=== PATIENT | female | born 1955 | race Caucasian/White ===

== ENCOUNTER 2016-04-03 19:42 | Emergency (ER) | payer OTHER, BC ==
[2016-04-03] MEDS ORDERED: Ondansetron INJ* 2 MG/ML VIAL IV ONE ×2 (20:36→22:06)
[2016-04-03] MEDS: NS 0.9% 1000 ML* 2,000 ML IV ONE ×2 (20:54→23:00)
[2016-04-03 21:03] LABS: Comments Flag Yes; Hematocrit 35 % (35-47); Hemoglobin 11.9 g/dl (12.0-16.0); Mean Corpuscular HGB Conc 34 g/dl (31-36); Mean Corpuscular Hemoglobin 34 pg (27-31); Mean Corpuscular Volume 99 fL (80-97); Mean Platelet Volume 8 um3 (7.4-10.4); Red Blood Count 3.55 10^6/ul (4.0-5.4); Red Cell Distribution Width 14 % (10.5-15)
[2016-04-03 21:04] LABS: White Blood Count 1.4 10^3/ul (3.5-10.8)
[2016-04-03 21:19] LABS: Albumin 3.7 g/dL (3.2-5.2); BUN/Creatinine Ratio 20.5 (8-20); C Reactive Protein 9.95 mg/L (< 5.00); Calcium 8.6 mg/dL (8.6-10.3); EGFR African American 96.6 (>60); EGFR Non-African American 75.1 (>60); Globulin 2.6 g/dL (2-4); Potassium 3.3 mmol/L (3.5-5.0); Total Bilirubin 0.4 mg/dL (0.2-1.0); Total Protein 6.3 g/dL (6.4-8.9)
--- NOTE | 2016-04-03 21:21 | RAD ---
HISTORY: Fever COMPARISONS: April 09, 2014 VIEWS:1: Single frontal portable view of the chest at 9:17 PM FINDINGS: LINES AND TUBES: None. CARDIOMEDIASTINAL SILHOUETTE: The cardiomediastinal silhouette is normal for portable technique. PLEURA: The costophrenic angles are sharp. No pleural abnormalities are noted. LUNG PARENCHYMA: The lungs are clear. ABDOMEN: The upper abdomen is clear. There is no subphrenic gas. BONES AND SOFT TISSUES: There is a scoliotic curvature of the spine. Surgical clips are noted in the left axilla. IMPRESSION: NO ACTIVE CARDIOPULMONARY DISEASE.
[2016-04-03] MEDS ORDERED: Potassium Chlor TAB* 20 MEQ TAB.ER PO ONE (21:35)
[2016-04-03] MEDS ORDERED: Ondansetron ODT TAB* 4 MG PO ONE (22:07)
--- NOTE | 2016-04-03 22:55 | ED ---
I, Rigoberto,Harry, scribed for Romario Kidd MD on 04/03/16 at 2042 . Complex/Multi-Sys Presentation - HPI Summary HPI Summary: This 60 y/o female presents to ED for acute, intermittent fever. Pt reports temperature of ~ 100.3 F at home [employer]. Pt decided to visit ED when she was strongly urged by her oncologist to come to ED for blood work. Pt also reports recent "stomach bug" and watery, malodorous diarrhea. Pt is noted afebrile at the time of triage, but was noted with blood pressure of 86/64 at the time of initial evaluation, which pt confirms lower than her baseline. 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 FHx is positive for "various types" of CA. - History Of Current Complaint Chief Complaint: ED Time Seen by Provider: 04/03/16 20:29 Hx Obtained From: Patient, Medical Records Onset/Duration: Sudden Onset, Still Present Timing: Intermittent, Lasting: - fever Severity Currently: Mild Severity Initially: Mild Associated Signs And Symptoms: Positive: Diarrhea - watery, malodorous, Fever - Allergies/Home Medications Allergies/Adverse Reactions: Allergies Allergy/AdvReac Type Severity Reaction Status Date / Time Hydrocodone [From Vicodin] AdvReac Severe HYPOTENSION Verified 04/06/14 10:51 Morphine and Related AdvReac Severe HYPOTENSION Verified 04/06/14 10:51 PMH/Surg Hx/FS Hx/Imm Hx Endocrine/Hematology History: Reports: Hx Blood Transfusions - NOT SURE Denies: Hx Diabetes, Hx Systemic Lupus Erythematosus Cardiovascular History: Reports: Other Cardiovascular Problems/Disorders - PERICARDITIS Denies: Hx Congestive Heart Failure, Hx Hypertension Respiratory History: Reports: Hx Seasonal Allergies - AUDREY FEVER GI History: Reports: Hx Gall Bladder Disease - NO GALL BLADER DUE TO WHIPPLE, Other GI Disorders - sbo History: Reports: Hx Renal Disease - solitary kidney, Other Problems/ Disorders - right kidney removed tumor Denies: Hx Dialysis Musculoskeletal History: Reports: Hx Back Problems - L SIDE, Hx Scoliosis - NEVER FULLY DX BUT MD SUGGESTED SHE MAY HAVE SCOLIOSIS Denies: Hx Rheumatoid Arthritis Sensory History: Reports: Hx Contacts or Glasses Opthamlomology History: Reports: Hx Contacts or Glasses Neurological History: Reports: Other Neuro Impairments/Disorders - bad headaches from chemo - Cancer History Cancer Type, Location and Year: kidney ca - chemo since june 2012 , liposarcoma, L BREAST CA Hx Chemotherapy: Yes - LIPOSARCOMA Hx Radiation Therapy: No Hx Palliative Cancer Treatment: Yes - Surgical History Surgery Procedure, Year, and Place: right kidney removed 10/2001, left foot fx pinned, L mastectomy 02/2013. 2009 RETROPERITONEAL RESECTION. 08/2013 [facility]IP[facility] PRECEDURE Hx Anesthesia Reactions: No - Immunization History Date of Tetanus Vaccine: up to date per pt. Infectious Disease History: No Infectious Disease History: Denies: Hx Clostridium Difficile, Hx Hepatitis, Hx Human Immunodeficiency Virus (HIV), Hx of Known/Suspected MRSA, Hx Shingles, Hx Tuberculosis, Hx Known/ Suspected VRE, Hx Known/Suspected VRSA, Traveled Outside the [place] in Last 30 Days - Family History Known Family History: Positive: Hypertension, Other - "various types" of CA. Father positive for prostate CA. - Social History Alcohol Use: None Hx Substance Use: No Substance Use Type: Reports: None Hx Tobacco Use: No Smoking Status (MU): Never Smoked Tobacco Review of Systems Positive: Fever - intermittent. Max temp of 100.3 F Positive: Other - low blood pressure in 80s/60s at time of initial evaluation Positive: Abdominal Pain - secondary to abd liposarcoma, Diarrhea - watery, malodorous Negative: Anxious, Depressed All Other Systems Reviewed And Are Negative: Yes Physical Exam - Summary Physical Exam Summary: VITAL SIGNS: Reviewed. GENERAL: Patient is a well developed and nourished female who is lying comfortable in the stretcher. Patient is not in any acute respiratory distress. HEAD AND FACE: Normocephalic and atraumatic. EYES: PERRLA, EOMI x 2, No injected conjunctiva. EARS: Hearing grossly intact. Ear canals and tympanic membranes are WNL. MOUTH: Oropharynx within normal limits. NECK: Supple, trachea is midline, no adenopathy, no JVD. CHEST: Symmetric, no tenderness at palpation LUNGS: Clear to auscultation bilaterally. No wheezing or crackles. CVS: RRR,, S1 and S2 present, no murmurs or gallops appreciated. ABDOMEN: Soft, non-tender. No signs of distention. Positive bowel sounds. No rebound no guarding, and no masses palpated. No abdominal bruit or pulsations. EXTREMITIES: FROM in all major joints, no edema, no cyanosis or clubbing. NEURO: Alert and oriented x 3. No acute neurological deficits. Speech is normal. SKIN: Dry and warm Triage Information Reviewed: Yes Vital Signs On Initial Exam: Initial Vitals Temp Pulse Resp BP Pulse Ox 98.6 F 80 18 91/68 97 04/03/16 20:19 04/03/16 20:19 04/03/16 20:19 04/03/16 20:19 04/03/16 20:19 Vital Signs Reviewed: Yes Diagnostics - Vital Signs Vital Signs Temp Pulse Resp BP Pulse Ox 04/03/16 20:19 98.6 F 80 18 91/68 97 - Laboratory Lab Results: Lab Results 04/03/16 04/03/16 04/03/16 Range/Units 20:48 20:48 20:48 WBC 1.4 L (3.5-10.8) 10^3/ul RBC 3.55 L (4.0-5.4) 10^6/ul Hgb 11.9 L (12.0-16.0) g/dl Hct 35 (35-47) % MCV 99 H (80-97) fL MCH 34 H (27-31) pg MCHC 34 (31-36) g/dl RDW 14 (10.5-15) % Plt Count 196 (150-450) 10^3/ul MPV 8 (7.4-10.4) um3 Neut % (Auto) 82.7 (38-83) % Lymph % (Auto) 12.4 L (25-47) % Osborne % (Auto) 4.3 (1-9) % Eos % (Auto) 0.4 (0-6) % Baso % (Auto) 0.2 (0-2) % Absolute Neuts (auto) 1.1 L (1.5-7.7) 10^3/ul Absolute Lymphs (auto) 0.2 L (1.0-4.8) 10^3/ul Absolute Monos (auto) 0.1 (0-0.8) 10^3/ul Absolute Eos (auto) 0 (0-0.6) 10^3/ul Absolute Basos (auto) 0 (0-0.2) 10^3/ul Absolute Nucleated RBC 0 10^3/ul Nucleated RBC % 0.1 INR (Anticoag Therapy) 1.08 (0.89-1.11) APTT 30.7 (26.0-36.3) seconds Sodium 137 (133-145) mmol/L Potassium 3.3 L (3.5-5.0) mmol/L Chloride 104 (101-111) mmol/L Carbon Dioxide 22 (22-32) mmol/L Anion Gap 11 (2-11) mmol/L BUN 16 (6-24) mg/dL Creatinine 0.78 (0.51-0.95) mg/dL Est GFR ( Amer) 96.6 (>60) Est GFR (Non-Af Amer) 75.1 (>60) BUN/Creatinine Ratio 20.5 H (8-20) Glucose 145 H (70-100) mg/dL Lactic Acid (0.5-2.0) mmol/L Calcium 8.6 (8.6-10.3) mg/dL Total Bilirubin 0.40 (0.2-1.0) mg/dL AST 15 (13-39) U/L ALT 9 (7-52) U/L Alkaline Phosphatase 73 (34-104) U/L Troponin I 0.00 (<0.04) ng/mL C-Reactive Protein 9.95 H (< 5.00) mg/L Total Protein 6.3 L (6.4-8.9) g/dL Albumin 3.7 (3.2-5.2) g/dL Globulin 2.6 (2-4) g/dL Albumin/Globulin Ratio 1.4 (1-3) 04/03/16 Range/Units 20:48 WBC (3.5-10.8) 10^3/ul RBC (4.0-5.4) 10^6/ul Hgb (12.0-16.0) g/dl Hct (35-47) % MCV (80-97) fL MCH (27-31) pg MCHC (31-36) g/dl RDW (10.5-15) % Plt Count (150-450) 10^3/ul MPV (7.4-10.4) um3 Neut % (Auto) (38-83) % Lymph % (Auto) (25-47) % Osborne % (Auto) (1-9) % Eos % (Auto) (0-6) % Baso % (Auto) (0-2) % Absolute Neuts (auto) (1.5-7.7) 10^3/ul Absolute Lymphs (auto) (1.0-4.8) 10^3/ul Absolute Monos (auto) (0-0.8) 10^3/ul Absolute Eos (auto) (0-0.6) 10^3/ul Absolute Basos (auto) (0-0.2) 10^3/ul Absolute Nucleated RBC 10^3/ul Nucleated RBC % INR (Anticoag Therapy) (0.89-1.11) APTT (26.0-36.3) seconds Sodium (133-145) mmol/L Potassium (3.5-5.0) mmol/L Chloride (101-111) mmol/L Carbon Dioxide (22-32) mmol/L Anion Gap (2-11) mmol/L BUN (6-24) mg/dL Creatinine (0.51-0.95) mg/dL Est GFR ( Amer) (>60) Est GFR (Non-Af Amer) (>60) BUN/Creatinine Ratio (8-20) Glucose (70-100) mg/dL Lactic Acid 0.9 (0.5-2.0) mmol/L Calcium (8.6-10.3) mg/dL Total Bilirubin (0.2-1.0) mg/dL AST (13-39) U/L ALT (7-52) U/L Alkaline Phosphatase (34-104) U/L Troponin I (<0.04) ng/mL C-Reactive Protein (< 5.00) mg/L Total Protein (6.4-8.9) g/dL Albumin (3.2-5.2) g/dL Globulin (2-4) g/dL Albumin/Globulin Ratio (1-3) Result Diagrams: 04/03/16 20:48 04/03/16 20:48 Lab Statement: Any lab studies that have been ordered have been reviewed, and results considered in the medical decision making process. - Radiology CXR Xray Interpretation: No Acute Changes Radiology Interpretation Completed By: Radiologist Re-Evaluation - Re-Evaluation First Eval Re-Evaluation Time: 22:04 Comment: in room to update pt on imaging/bloodwork results. Plan of care is discussed and pt is agreeable. Complex Multi-Symp Course/Dx Assessment/Plan: 60 y/o female w/ hx of liposarcoma currently on oral chemotherapy presents to the ED c / o Fever at home up to 100.3 associated with nausea, vomiting and watery diarrhea. She reports its watery diarrhea w/o blood or mucus. No Hx of antibiotics in the last couple weeks. She denies any recent traveling or sick contacts. Initially she was given IV fluids for hydration and Zofran for nausea. Lab test: CBC with WBCs 1.4, hb 11.9, lactic acid 0.9, Troponin 0.0. CXR: No active cardiopulmonary disease. After hydration and zofran patients symptoms have improved. Patient continues to be afebrile and she has not have any other episodes of vomiting or diarrhea. Patient reports that she was told by her oncologist that WBCs are less than 1 she should be getting an antibiotic. Since it is 1.4 she will not get an antibiotic. I discussed all the findings and test results with the patient and patient. Patient was instructed to return to the emergency room immediately if any of the symptoms return or worsens. They understand and agree. They were explained the possibility of an early abdominal pathology which was not detected at this time despite the physical exam and testing. They understand and agree. Abdominal exam before discharge: Soft,NT. No signs of distention. BS present. No rebound no guarding, and no masses palpated. Patient is alert and oriented. Patient is hemodynamically stable. Patient is to follow up with primary care physician in the next 24 hours. Patient and patients parents agree and understands. - Diagnoses Differential Diagnoses/HQI/PQRI: Other - Gastroenteritis, colitis, gastritis Provider Diagnoses: Diarrhea, Nausea & vomiting Discharge - Discharge Plan Condition: Stable Disposition: HOME Prescriptions: Ondansetron ODT TAB* [Zofran Odt TAB*] 4 mg PO Q6H PRN #10 tab.odt PRN Reason: Vomiting Ondansetron ODT TAB* [Zofran Odt TAB*] 4 mg PO Q6H PRN #10 tab.odt PRN Reason: Vomiting Patient Education Materials: Ondansetron (By mouth), Acute Nausea and Vomiting (ED), Acute Diarrhea (ED) Referrals: Jeison Ashton MD [Primary Care Provider] - 2 Days The documentation as recorded by the scribe, Harry Franklin accurately reflects the service I personally performed and the decisions made by me, Romario Kidd MD.
[2016-04-04 00:34] VITALS: BP 94/55
== END 2016-04-04 00:34 | disposition home or self-care (01) ==
LOC: ED 19:42
DX: R19.7 Diarrhea, unspecified (principal); R11.2 Nausea with vomiting, unspecified; R50.9 Fever, unspecified; R10.9 Unspecified abdominal pain
CPT/HCPCS: 36415; 71010; 80053; 83605; 84484; 85025; 85610; 85730; 86140; 86703; 96361; 96374; 99283; A9270-GY; J2405